=== PATIENT | male | born 1935 | race Asian ===

== ENCOUNTER 2024-02-19 14:23 | Inpatient (IN) | payer MEDICARE, MEDICAID ==
[~2024-02-19] VITALS: Ht 170.2 cm; Wt 66.4 kg
--- NOTE | 2024-02-19 15:18 | DVH ---
EXAM: XY CHEST PORTABLE TECHNIQUE: Single frontal chest radiograph CLINICAL HISTORY: sob COMPARISON: None Findings/Impression: Frontal chest radiograph demonstrates no acute osseous or superficial soft tissue abnormalities. The trachea is midline. Cardiomegaly with pulmonary vascular congestion. Small bilateral pleural effusions with compressive atelectasis. A superimposed infectious process is not excluded. No pneumothorax.
[2024-02-19 15:20] LABS: Basophils # (auto) 0 10 ^3/uL (0-0.2); Basophils % (auto) 0.7 % (0.0-2.0); Eosinophils # (auto) 0.1 10 ^3/uL (0-0.8); Eosinophils % (auto) 3.1 % (0.0-7.0); Hematocrit 32.3 % (41.0-53.0); Hemoglobin 10.2 g/dL (13.5-17.5); Lymphocytes # (auto) 0.8 10 ^3/uL (0.4-5.4); Lymphocytes % (auto) 21.5 % (10.0-50.0); Mean Corpuscular Hemoglobin 27.5 pg (28.0-32.0); Mean Corpuscular Hgb Conc. 31.5 g/dL (32.0-36.0); Mean Corpuscular Volume 87.5 fL (80.0-100.0); Monocytes # (auto) 0.3 10 ^3/uL (0-1.3); Monocytes % (auto) 6.6 % (0.0-12.0); Neutrophils # (auto) 2.7 10 ^3/uL (1.6-8.6); Neutrophils % (auto) 68.1 % (37.0-80.0); Nucleated Red Blood Cells % 0.1 %; Platelet Count (auto) 156 10^3/uL (140-450); Red Cell Distribution Width 18.5 % (11.8-14.3)
[2024-02-19 15:23] LABS: Anion Gap 6 (5-15); Carbon Dioxide 25 mmol/L (20-31)
[2024-02-19 15:24] LABS: Calcium 8.9 mg/dL (8.7-10.4); Chloride 112 mmol/L (98-107); Sodium 143 mmol/L (136-145)
[2024-02-19 15:28] LABS: BUN/Creatinine Ratio 11.8 (10.0-20.0); Blood Urea Nitrogen 23 mg/dL (9-23)
[2024-02-19 15:29] LABS: Glucose 144 mg/dL (74-106)
[2024-02-19] MEDS: NTG 0.1MG/HR TOPICAL PATCH TD ONE (15:30)
--- NOTE | 2024-02-19 15:44 | ED.PDOC ---
History of Present Illness HPI Comments 88 y/o M presents with son for c/o shortness of breath, chest pain, bilateral leg swelling, poor appetite, and unintentional weight-loss for the past 2x weeks, today. Per son, who, in addition to the patient, is a poor historian, patient has been getting progressively worse within the past couple weeks follo wing unprovoked onset. Patient is stated to have had similar symptoms 3x months ago but son is unable to elaborate further on series of events or outcomes that came about then. Patient is further reported to have an extensive cardiac Hx without specifications provided by either patient or son. Patient has no other palpitations, dizziness, lightheadedness, nausea, vomiting, fever, chills, or other associated symptoms or modifiers at this time. Chief Complaint: Shortness of Breath Time Seen by MD: 14:50 Reviewed Notes: Nurses Notes, Medications, Allergies Allergies: Coded Allergies: NO KNOWN ALLERGIES (Unverified , 02/19/24) Information Source: Patient, Relative (Child) Mode of Arrival: EMS Severity: Moderate Timing: Weeks Duration: Since onset Prehospital treatment: None Past Medical History Past Medical History (Other): cardiac conditions, unspecified Social History Smoker: Non-Smoker Alcohol: Denies ETOH Use Drugs: Denies Drug Use Respiratory: reports: shortness of breath Cardiovascular: reports: chest pain Musculoskeletal: reports: others (leg swelling bilaterally ) All Other Systems: Reviewed and Negative (negative unless otherwise stated in HPI) Physical Exam General Appearance: No Apparent Distress, Normal HEENT: Normal ENT Inspection, Pharynx Normal, TMs Normal Neck: Full Range of Motion, Non-Tender, Normal, Normal Inspection Respiratory: Chest Non-Tender, Lungs Clear, No Accessory Muscle Use, No Respiratory Distress, Normal Breath Sounds Cardiovascular: No Edema, No JVD, No Murmur, No Gallop, Normal Peripheral Pulses, Other (systolic clip) Breast Exam: Deferred Gastrointestinal: No Organomegaly, Non Tender, No Pulsatile Mass, Normal Bowel Sounds, Soft Genitalia: Deferred Pelvic: Deferred Rectal: Deferred Extremities: Leg edema (3+ pedal edema ), No calf tenderness, Normal capillary refill, Normal range of motion, No pedal edema Musculoskeletal : Apperance: Normal 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 Was a procedure done?: No EKG EKG : Pulse Rate (adult): 74 [place]: Normal Cardiac Rhythm: Afib Hypertrophy: None ST: Old, Ant, Infarct Comments left posterior fascicular block Differential Dx Considerations may include: MT, ACS, PE, PNA, pleural effusions, angina, costochondritis, pericarditis, viral syndrome, URI, chf, renal failure, liver failure X-Ray, Labs, Meds, VS Vital Signs Date Time Temp Pulse Resp B/P (MAP) Pulse Ox O2 Delivery O2 Flow Rate FiO2 02/19/24 15:44 74 02/19/24 14:41 74 02/19/24 14:35 98.9 74 19 133/73 (93) 97 02/19/24 14:30 74 Lab Test 02/19/24 15:00 Range/Units White Blood Count 4.0 L 4.4-10.8 10^3/uL Red Blood Count 3.70 L 4.5-5.90 10^6/uL Hemoglobin 10.2 L 13.5-17.5 g/dL Hematocrit 32.3 L 41.0-53.0 % Mean Corpuscular Volume 87.5 80.0-100.0 fL Mean Corpuscular Hemoglobin 27.5 L 28.0-32.0 pg Mean Corpuscular Hemoglobin Concent 31.5 L 32.0-36.0 g/dL Red Cell Distribution Width 18.5 H 11.8-14.3 % Platelet Count 156 140-450 10^3/uL Mean Platelet Volume 8.0 6.9-10.8 fL Neutrophils (%) (Auto) 68.1 37.0-80.0 % Lymphocytes (%) (Auto) 21.5 10.0-50.0 % Monocytes (%) (Auto) 6.6 0.0-12.0 % Eosinophils (%) (Auto) 3.1 0.0-7.0 % Basophils (%) (Auto) 0.7 0.0-2.0 % Neutrophils # (Auto) 2.7 1.6-8.6 10 ^3/uL Lymphocytes # (Auto) 0.8 0.4-5.4 10 ^3/uL Monocytes # (Auto) 0.3 0-1.3 10 ^3/uL Eosinophils # (Auto) 0.1 0-0.8 10 ^3/uL Basophils # (Auto) 0 0-0.2 10 ^3/uL Nucleated Red Blood Cells 0.1 % Sodium Level 143 136-145 mmol/L Potassium Level 5.0 3.5-5.1 mmol/L Chloride Level 112 H 98-107 mmol/L Carbon Dioxide Level 25 20-31 mmol/L Anion Gap 6 5-15 Blood Urea Nitrogen 23 9-23 mg/dL Creatinine 1.95 H 0.700-1.30 mg/dL Glomerular Filtration Rate Calc 33 >90 mL/min BUN/Creatinine Ratio 11.8 10.0-20.0 Serum Glucose 144 H 74-106 mg/dL Calcium Level 8.9 8.7-10.4 mg/dL Troponin I High Sensitivity 54 </=54 ng/L B-Type Natriuretic Peptide 484.46 0-100 pg/mL [place] [id number] Ph: [phone] DIAGNOSTIC IMAGING Diagnostic Imaging Report : [id number] Signed PATIENT: Piero Cruz ACCT: [id number] UNIT: [id number] : 1935 LOC: ER ROOM / BED: / AGE / SEX: 88 / M ADM STATUS: REG ER SERVICE 49 ORDERING PHYSICIAN: KAYLYNN SHER MD PROCEDURE(s): CXRP - CHEST PORTABLE REASON: sob ORDER NUMBER(s): [id number], ACCESSION NUMBER(s): [id number] EXAM: XY CHEST PORTABLE TECHNIQUE: Single frontal chest radiograph CLINICAL HISTORY: sob COMPARISON: None Findings/Impression: Frontal chest radiograph demonstrates no acute osseous or superficial soft tissue abnormalities. The trachea is midline. Cardiomegaly with pulmonary vascular congestion. Small bilateral pleural effusions with compressive atelectasis. A superimposed infectious process is not excluded. No pneumothorax. ATED BY: ZABRINA RAMIREZ DO DICTATED DATE/TIME: 02/19/241514 SIGNED BY: ZABRINA RAMIREZ DO SIGNED DATE/TIME: 02/19/241514 CC: Time of 1ST Reevaluation: 15:20 Reevaluation 1ST: Unchanged Time of 2ND Reevaluation: 15:49 Reevaluation 2ND: Unchanged (shelter monitor-nsr) Patient Education/Counseling: Diagnosis, Treatment, Prognosis, Need For Follow Up Family Education/Counseling: Diagnosis, Treatment, Prognosis, Need For Follow Up Additional Information The following tests were ordered, and results were reviewed by me: EKG, troponin, BNP, BMP, CBC, CXR Additional Information was gathered from interviewing the following independent historians: son I reviewed and agreed with the following test results read by other providers: CXR I discussed treatment and results with medical personnel and:son pt has chf, with cxr and physical findings which are consistent. he also has renal insufficiency. it is unknown how acute the renal failure is. i will diurese him, but since he is not in distress. i will give judicious doses as he will need close renal monitoring with diuresis Departure 1 Departure Time of Disposition: 15:51 Impression: Primary Impression: CHF (congestive heart failure) Qualified Codes: I50.21 - Acute systolic (congestive) heart failure Additional Impression: Renal failure Qualified Codes: N19 - Unspecified kidney failure Disposition: ADMITTED INPATIENT Admit to: Tele Condition: Serious Discharged With: Self, Relative Critical Care Note Critical Care Time?: Yes (55 min-critical care time only) Critical care comment: due to concerns for patient's condition worsening, the care required my highest attention and readiness to intervene. i reviewed the medical records, communicated with medical personnel, consultants, ordered the proper tests, treatments, reassessed the response and results. formulated a plan of care . total time does not include any procedures Stability Stability form required: No Heart Score Heart Score: Heart Score Response (Comments) Value History Moderate Suspicious 1 EKG Repolarization Disturb 1 Age >65 2 Risk Factors 1 or 2 risk factors 1 Troponin Normal limit 0 Total 5 I personally scribed for KAYLYNN SHER MD ([email or web address]) on 02/19/24 at 15:44. Electronically submitted by Babak Oneill ([email or web address]). KAYLYNN SHER MD Feb 19, 2024 15:44
[2024-02-19] MEDS: ASPirin 325 MG TAB PO ONE (18:08)
[2024-02-19] MEDS: FUROSEMIDE 20 MG/2 ML VIAL IV ONE (18:12)
[2024-02-19] MEDS ORDERED: TEMAZEPAM 15 MG CAP PO PRN (20:15)
[2024-02-19] MEDS ORDERED: NITROGLYCERIN 0.4 MG SL TAB SL PRN (20:15)
[2024-02-19] MEDS ORDERED: MORPHINE SULFATE INJ 2 MG/ml SYRG IV PRN (20:15)
[2024-02-19] MEDS ORDERED: ONDANSETRON HCL 4 MG/2 ML VIAL IV PRN (20:15)
[2024-02-19 20:59] LABS: INR 1.99 (0.9-1.15); Partial Thromboplastin Time 31.9 SEC (24.5-34.5)
[2024-02-19] MEDS: GABAPENTIN 100 MG CAP PO SCH (23:41)
[2024-02-19] MEDS: ATORVASTATIN 20 MG TAB PO SCH (23:41)
[2024-02-20] VITALS (10 sets, daily range): BP systolic 113–151; BP diastolic 54–78; PULSE 67–85; RESP 16–20; TEMP 97.4–98.1; O2SAT 93–96
--- NOTE | 2024-02-20 04:39 | DVHHP2 ---
History of Present Illness Reason for Visit: Leg swelling History of Present Illness 88-year-old male presents for evaluation of shortness for breath. Patient presents with a one-week history of worsening shortness for breath with associated bilateral lower extremity swelling and chest pressure. No cough or fever were reported. Denies palpitations. No other acute complaints. Past Medical History Diabetes mellitus, Hypertension, dyslipidemia, congestive heart failure, CAD Past Surgical History Open heart surgery Family History Noncontributory Smoke: No ALCOHOL: none Drugs: None Lives: with Family Review of Systems Review of Systems Review of systems are currently negative otherwise addressed in HPI. Allergies: Coded Allergies: NO KNOWN ALLERGIES (Unverified , 02/19/24) Medications Current Medications Medications Dose Ordered Sig/Robbie Route Start Time Stop Time Status Last Admin Dose Admin Furosemide 20 mg BIDD IV 02/20/24 06:00 Losartan Potassium 100 mg DAILY PO 02/20/24 10:00 Atorvastatin Calcium 40 mg HS PO 02/19/24 22:00 02/19/24 23:41 40 MG Gabapentin 100 mg BID PO 02/19/24 22:00 02/19/24 23:41 100 MG Warfarin Sodium RX PROTOCOL PER PHARMACY PO 02/19/24 20:15 UNV Aspirin 81 mg DAILY PO 02/20/24 10:00 Temazepam 15 mg QHSP PRN PO 02/19/24 20:15 Ondansetron HCl 4 mg Q4HP PRN IV 02/19/24 20:15 Acetaminophen 650 mg Q6HP PRN PO 02/19/24 20:15 Nitroglycerin 0.4 mg Q5MINP PRN SL 02/19/24 20:15 Morphine Sulfate 2 mg Q30M PRN IV 02/19/24 20:15 Exam Vital Signs Vital Signs Date Time Temp Pulse Resp B/P (MAP) Pulse Ox O2 Delivery O2 Flow Rate FiO2 02/20/24 00:15 85 18 96 Room Air* 0 21 02/20/24 00:15 97.6 142/71 (94) 97.6 Exam Gen: 88-year-old male in mild distress. Skin: Warm, dry, normal color and texture, no rash. HEENT: Normocephalic atraumatic, mucous membranes moist and pink. Neck: Cervical and supraclavicular nodes normal without enlargement, trachea is midline, thyroid gland is normal without masses. Pulmonary: Clear to auscultation and percussion bilaterally. Cardiac: Regular rate and rhythm. No murmur Abdomen: Soft, nontender, nondistended, bowel sounds present all 4 quadrants, no guarding, no rigidity, no organomegaly. Extremities: No cyanosis, clubbing, no edema Neuro: Cranial nerves II through XII grossly intact, normal affect and speech, no focal motor deficits. Labs/Xrays ORDERING PHYSICIAN: KAYLYNN SHER MD PROCEDURE(s): CXRP - CHEST PORTABLE REASON: sob ORDER NUMBER(s): [id number], ACCESSION NUMBER(s): [id number] EXAM: XY CHEST PORTABLE TECHNIQUE: Single frontal chest radiograph CLINICAL HISTORY: sob COMPARISON: None Findings/Impression: Frontal chest radiograph demonstrates no acute osseous or superficial soft tissue abnormalities. The trachea is midline. Cardiomegaly with pulmonary vascular congestion. Small bilateral pleural effusions with compressive atelectasis. A superimposed infectious process is not excluded. No pneumothorax. Labs Test 02/19/24 20:35 02/19/24 18:05 02/19/24 15:00 Range/Units Prothrombin Time 20.0 H 9.3-11.8 sec Prothrombin Time INR 1.99 H 0.9-1.15 Activated Partial Thromboplast Time 31.9 24.5-34.5 SEC Troponin I High Sensitivity 53 </=54 ng/L White Blood Count 4.0 L 4.4-10.8 10^3/uL Red Blood Count 3.70 L 4.5-5.90 10^6/uL Hemoglobin 10.2 L 13.5-17.5 g/dL Hematocrit 32.3 L 41.0-53.0 % Mean Corpuscular Volume 87.5 80.0-100.0 fL Mean Corpuscular Hemoglobin 27.5 L 28.0-32.0 pg Mean Corpuscular Hemoglobin Concent 31.5 L 32.0-36.0 g/dL Red Cell Distribution Width 18.5 H 11.8-14.3 % Platelet Count 156 140-450 10^3/uL Mean Platelet Volume 8.0 6.9-10.8 fL Neutrophils (%) (Auto) 68.1 37.0-80.0 % Lymphocytes (%) (Auto) 21.5 10.0-50.0 % Monocytes (%) (Auto) 6.6 0.0-12.0 % Eosinophils (%) (Auto) 3.1 0.0-7.0 % Basophils (%) (Auto) 0.7 0.0-2.0 % Neutrophils # (Auto) 2.7 1.6-8.6 10 ^3/uL Lymphocytes # (Auto) 0.8 0.4-5.4 10 ^3/uL Monocytes # (Auto) 0.3 0-1.3 10 ^3/uL Eosinophils # (Auto) 0.1 0-0.8 10 ^3/uL Basophils # (Auto) 0 0-0.2 10 ^3/uL Nucleated Red Blood Cells 0.1 % Sodium Level 143 136-145 mmol/L Potassium Level 5.0 3.5-5.1 mmol/L Chloride Level 112 H 98-107 mmol/L Carbon Dioxide Level 25 20-31 mmol/L Anion Gap 6 5-15 Blood Urea Nitrogen 23 9-23 mg/dL Creatinine 1.95 H 0.700-1.30 mg/dL Glomerular Filtration Rate Calc 33 >90 mL/min BUN/Creatinine Ratio 11.8 10.0-20.0 Serum Glucose 144 H 74-106 mg/dL Calcium Level 8.9 8.7-10.4 mg/dL B-Type Natriuretic Peptide 484.46 0-100 pg/mL Assessment/Plan Assessment/Plan Assessment Acute on chronic congestive heart failure Chronic kidney disease Diabetes mellitus Plan Admit the patient to telemetry to the hospitalist Cardiology consultation Resume home medications IV Lasix Continue treatment per orders. Plan discussed with: Patient My Orders Orders - NASIR SUNG AGACN Procedure Category Date Status Time Furosemide Injection PHA 02/20/24 In Process (Lasix Injection) 06:00 Losartan Tablet PHA 02/20/24 In Process (Cozaar Tablet) 10:00 Atorvastatin (Lipitor) PHA 02/19/24 In Process 22:00 Gabapentin Capsule PHA 02/19/24 In Process (Neurontin Capsule) 22:00 Warfarin Per Rx PHA 02/19/24 Pending Protocol (Coumadin 20:15 Aspirin Tablet PHA 02/20/24 In Process 10:00 * Cardiology Consult CONS 02/19/24 Transmitted 20:02 Admit ADMIT 02/19/24 Transmitted 20:02 Temazepam (Restoril) PHA 02/19/24 In Process 20:15 Ondansetron Hcl PHA 02/19/24 In Process (Zofran) 20:15 Cardiac DIET 02/20/24 Transmitted Diet-2gna,Lofat,Lochol Breakfast Echo 2d Mode Cardiac US 02/19/24 Logged DOP 20:02 Condition: Fair CARTER 02/19/24 In Process 20:02 Acetaminophen Tablet PHA 02/19/24 In Process (Tylenol Tablet) 20:15 Bedrest With Bathroom [facility]TER 02/19/24 In Process Privileg 20:02 Nitroglycerin [facility] 02/19/24 In Process Sublingual (Ntrostat 20:15 Morphine Sulfate PHA 02/19/24 In Process Injection 20:15 Stat Ekg For Chest [facility] 02/19/24 In Process Pain 20:02 Notify Of Changes [facility] 02/19/24 In Process From Base 20:02 Bobbin Cleaner For [facility] 02/19/24 In Process 24 Hours 20:02 Emergency Dysrhythmia [facility] 02/19/24 In Process Protocol 20:02 Rhythm Strips Once [facility] 02/19/24 In Process Every Shift 20:02 Oxygen By Nasal RT 02/19/24 Transmitted Cannula 20:02 Basic Metabolic Panel LAB 02/20/24 Logged 04:00 Date of Service: Feb 19, 2024 Billing Provider: NASIR SUNG Common Visit Codes: 59572-BYAJRIH INP/OBS CARE (HIGH) NASIR SUNG Feb 20, 2024 04:38
[2024-02-20] MEDS: FUROSEMIDE 20 MG/2 ML VIAL IV SCH (06:49)
[2024-02-20 07:26] LABS: Potassium 4.6 mmol/L (3.5-5.1); Sodium 143 mmol/L (136-145)
[2024-02-20 07:27] LABS: Anion Gap 6 (5-15); Calcium 9.2 mg/dL (8.7-10.4); Carbon Dioxide 26 mmol/L (20-31)
[2024-02-20 07:32] LABS: BUN/Creatinine Ratio 10.1 (10.0-20.0); Blood Urea Nitrogen 20 mg/dL (9-23)
[2024-02-20 07:34] LABS: Chloride 111 mmol/L (98-107); Glucose 122 mg/dL (74-106)
[2024-02-20 09:09] LABS: Basophils # (auto) 0 10 ^3/uL (0-0.2); Basophils % (auto) 0.7 % (0.0-2.0); Eosinophils # (auto) 0.2 10 ^3/uL (0-0.8); Eosinophils % (auto) 4.9 % (0.0-7.0); Hematocrit 31.1 % (41.0-53.0); Hemoglobin 10.1 g/dL (13.5-17.5); Mean Corpuscular Hemoglobin 27.5 pg (28.0-32.0); Mean Corpuscular Hgb Conc. 32.4 g/dL (32.0-36.0); Mean Corpuscular Volume 84.9 fL (80.0-100.0); Monocytes # (auto) 0.3 10 ^3/uL (0-1.3); Monocytes % (auto) 6.5 % (0.0-12.0); Neutrophils # (auto) 2.7 10 ^3/uL (1.6-8.6); Neutrophils % (auto) 63.9 % (37.0-80.0); Platelet Count (auto) 165 10^3/uL (140-450); Red Blood Cells 3.66 10^6/uL (4.5-5.90); Red Cell Distribution Width 18.4 % (11.8-14.3); White Blood Cell 4.2 10^3/uL (4.4-10.8)
[2024-02-20 09:13] LABS: Albumin 3.5 g/dL (3.2-4.8); Alkaline Phosphatase 82 U/L (46-116); Aspartate Aminotransferase 18 U/L (13-40); Bilirubin, Total 1.2 mg/dL (0.2-1.0); Cholesterol 109 mg/dL (< 200); HDL Cholesterol 45 mg/dL (40-59); LDL Cholesterol 46 mg/dL (< 100); Magnesium 2.1 mg/dL (1.6-2.6); Triglycerides 83 mg/dL (< 150)
[2024-02-20 09:22] LABS: Alanine Aminotransferase < 9 U/L (7-40); Bilirubin, Direct 0.5 mg/dL (<0.3); Blood Alcohol < 3.0 mg/dL (<10); Total Protein 5.7 g/dL (5.7-8.2)
[2024-02-20] MEDS: LOSARTAN POTASSIUM 50 MG TAB PO SCH (10:28)
[2024-02-20] MEDS: ASPirin 81 mg TAB PO SCH (10:29)
--- NOTE | 2024-02-20 11:31 | DVH ---
Bilateral lower extremity venous duplex Clinical History: swelling and pain both legs Comparison: None Technique: Duplex Doppler evaluation of the deep venous systems of both lower extremities from the common femora l veins to the popliteal veins including color Doppler and spectral/pulsed waveform analysis was perf ormed. Findings: RIGHT SIDE: The common femoral vein demonstrates appropriate compressibility and waveform variability. There is compressibility/patency of the great saphenous vein at the proximal thigh. The femoral vein demonstrates appropriate compressibility and waveform variability. The deep femoral vein demonstrates appropriate compressibility and waveform variability. The popliteal vein demonstrates appropriate compressibility and waveform variability. There is normal compressibility at the tibioperoneal trunk. LEFT SIDE: The common femoral vein demonstrates appropriate compressibility and waveform variability. There is compressibility/patency of the great saphenous vein at the proximal thigh. The femoral vein demonstrates appropriate compressibility and waveform variability. The deep femoral vein demonstrates appropriate compressibility and waveform variability. The popliteal vein demonstrates appropriate compressibility and waveform variability. There is normal compressibility at the tibioperoneal trunk. Impression: No right or left femoropopliteal venous thrombosis.
--- NOTE | 2024-02-20 12:44 | DVHSR ---
APPROVED REPORT EXAM: Two-dimensional and M-mode echocardiogram with Doppler and color Doppler. Blood Pressure: 122/59 mmHg INDICATION EF Surgery/Intervention Valve Replacement: Type: AV RISK FACTORS Height: 5'7", Weight: 185 DIMENSIONS LVDd4.9 (3.8-5.7cm)LA (2D)4.8 (1.9-4.0cm)Aortic Root3.8 (2.0-3.7cm) LVDs2.7 (2.5-4.0cm)LA (MM) (1.9-4.0cm)Aortic Cusp Exc (1.5-2.0cm) EF (%) 77.0 (55-70%)Rt. Atrium4.6 (1.9-4.0cm)Asc. Aorta3.4 cm IVSd1.5 (0.7-1.1cm)RV (D)4.2 (1.8-2.4cm) PWd1.3 (0.7-1.1cm) Mitral Valve MitralMitral Stenosis E wave1.47m/sMV Mean GR.mmHg A wave0.55m/sMV Peak GR.mmHg E/A ratio2.72D MVAcm2 DECEL [id number] 1/2 Timems Aortic Valve Aortic ValveAortic Stenosis V10.87m/Bertin Mean GR.12mmHg V22.39m/Bertin Peak GR.23mmHg LVOT Diameter2.1 (1.8-2.4cm)Doppler AVA1.26cm2 Pulmonic Valve V21.38m/s Tricuspid Valve TR Velocity2.96m/s [id number] Conclusion Normal left ventricular size and dimension. Normal left ventricular systolic function estimated ejec tion fraction 55%. There is a grade 1 diastolic dysfunction. Normal right ventricular size and dimension. Normal right ventricular systolic function. 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 Moderately dilated left atrium. The mitral valve appears mildly thickened with mild mitral regurgitation. There is moderate tricuspid regurgitation. There is moderate pulmonary valve regurgitation.
[2024-02-20] MEDS: REGADENOSON 0.4 MG/5 ML SYRG IV ONE ×2 (13:25→13:49)
--- NOTE | 2024-02-20 13:49 | DVHCONRES ---
Date Seen: Feb 20, 2024 Resident Creating Document: DENTON ARANDA RESIDENT Reason for Consultation CHF History of Present Illness Piero Cruz is a 88-year-old German speaking male with a PMH of HTN, type 2 DM, dyslipidemia presented to the ED with the chief complaints of shortness of Breath for 2-3 weeks prior to admission. Patient reported he has been having difficulty breathing for 2-3 weeks which is worsening with a mild exertion and unable to lay down. Patient reports orthopnea and PND along with bilateral lower extremity swelling and occasional substernal chest discomfort. On my assessment patient denies fever, nausea, vomiting, diaphoresis, dizziness, palpitations and other acute associated symptoms. Patient does report around 45 years ago he had valve replacement surgery. 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 Family History Reviewed, noncontributory Social History Lives with the . Denies smoking, alcohol and other drug abuse Allergies: Coded Allergies: NO KNOWN ALLERGIES (Unverified , 02/19/24) Home Meds Unable to Obtain Active Prescriptions or Reported Meds Current Medications Current Medications Medications (Trade) Dose Ordered Sig/Robbie Route PRN Reason Start Time Stop Time Status Last Admin Furosemide (Lasix Injection) 20 mg BIDD IV 02/20/24 06:00 02/20/24 10:43 DC 02/20/24 06:49 Losartan Potassium (Cozaar Tablet) 100 mg DAILY PO 02/20/24 10:00 02/20/24 10:28 Atorvastatin Calcium (Lipitor) 40 mg HS PO 02/19/24 22:00 02/19/24 23:41 Gabapentin (Neurontin Capsule) 100 mg BID PO 02/19/24 22:00 02/20/24 10:28 Warfarin Sodium (Coumadin Per Rx Protocol) RX PROTOCOL PER PHARMACY PO 02/19/24 20:15 Aspirin 81 mg DAILY PO 02/20/24 10:00 02/20/24 10:29 Temazepam (Restoril) 15 mg QHSP PRN PO FOR INSOMNIA 02/19/24 20:15 Ondansetron HCl (Zofran) 4 mg Q4HP PRN IV NAUSEA / VOMITING 02/19/24 20:15 Acetaminophen (Tylenol Tablet) 650 mg Q6HP PRN PO PAIN SCALE 1-3 OR TEMP>100.4 02/19/24 20:15 Nitroglycerin (Ntrostat Sublingual) 0.4 mg Q5MINP PRN SL FOR CHEST PAIN 02/19/24 20:15 Morphine Sulfate 2 mg Q30M PRN IV FOR CHEST PAIN 02/19/24 20:15 Furosemide (Lasix Injection) 40 mg BIDD IV 02/20/24 10:45 Review of Systems Seen and examined at the bedside. Patient reported improvement in his symptoms since admission. No new complaints reported at this time. Vital Signs Vital Signs Date Time Temp Pulse Resp B/P (MAP) Pulse Ox O2 Delivery O2 Flow Rate FiO2 02/20/24 13:00 97.7 69 16 135/78 (97) 96 97.7 02/20/24 00:15 Room Air* 0 21 Physical Exam General Appearance: Alert, Oriented X3, Cooperative, Not in acute distress HEENT: Atraumatic, Mucous membranes moist/pink Respiratory: Clear to auscultation, Normal air movement, mild crackles Cardiovascular: Regular rate, Normal S1, Normal S2, No murmurs Abdominal: Active bowel sounds, Soft, no distention, no tenderness Extremities: 2-3+ BLE, Normal pulses, mild tenderness Skin: No Significant rash, except past surgical scars Neuro: Normal speech, sensorimotor deficits none Psych/Mental Status: Mental status NL, Mood NL Nurse was there as sharperone during examination Labs/Diagnostic Data Labs Test 02/20/24 07:04 02/19/24 20:35 02/19/24 18:05 02/19/24 15:00 Range/Units White Blood Count 4.2 L 4.4-10.8 10^3/uL Red Blood Count 3.66 L 4.5-5.90 10^6/uL Hemoglobin 10.1 L 13.5-17.5 g/dL Hematocrit 31.1 L 41.0-53.0 % Mean Corpuscular Volume 84.9 80.0-100.0 fL Mean Corpuscular Hemoglobin 27.5 L 28.0-32.0 pg Mean Corpuscular Hemoglobin Concent 32.4 32.0-36.0 g/dL Red Cell Distribution Width 18.4 H 11.8-14.3 % Platelet Count 165 140-450 10^3/uL Mean Platelet Volume 8.0 6.9-10.8 fL Neutrophils (%) (Auto) 63.9 37.0-80.0 % Lymphocytes (%) (Auto) 24.0 10.0-50.0 % Monocytes (%) (Auto) 6.5 0.0-12.0 % Eosinophils (%) (Auto) 4.9 0.0-7.0 % Basophils (%) (Auto) 0.7 0.0-2.0 % Neutrophils # (Auto) 2.7 1.6-8.6 10 ^3/uL Lymphocytes # (Auto) 1.0 0.4-5.4 10 ^3/uL Monocytes # (Auto) 0.3 0-1.3 10 ^3/uL Eosinophils # (Auto) 0.2 0-0.8 10 ^3/uL Basophils # (Auto) 0 0-0.2 10 ^3/uL Nucleated Red Blood Cells 0.0 % Sodium Level 143 136-145 mmol/L Potassium Level 4.6 3.5-5.1 mmol/L Chloride Level 111 H 98-107 mmol/L Carbon Dioxide Level 26 20-31 mmol/L Anion Gap 6 5-15 Blood Urea Nitrogen 20 9-23 mg/dL Creatinine 1.99 H 0.700-1.30 mg/dL Glomerular Filtration Rate Calc 32 >90 mL/min BUN/Creatinine Ratio 10.1 10.0-20.0 Serum Glucose 122 H 74-106 mg/dL Hemoglobin A1c 6.8 H <5.7 % A1C Calcium Level 9.2 8.7-10.4 mg/dL Magnesium Level 2.1 1.6-2.6 mg/dL Total Bilirubin 1.2 H 0.2-1.0 mg/dL Direct Bilirubin 0.5 H <0.3 mg/dL Aspartate Amino Transferase (AST) 18 13-40 U/L Alanine Aminotransferase (ALT) < 9 7-40 U/L Alkaline Phosphatase 82 46-116 U/L Total Protein 5.7 5.7-8.2 g/dL Albumin 3.5 3.2-4.8 g/dL Triglycerides Level 83 < 150 mg/dL Cholesterol Level 109 < 200 mg/dL LDL Cholesterol 46 < 100 mg/dL HDL Cholesterol 45 40-59 mg/dL Thyroid Stimulating Hormone (TSH) 4.17 0.55-4.78 uIU/mL Plasma/Serum Blood Alcohol < 3.0 <10 mg/dL Prothrombin Time 20.0 H 9.3-11.8 sec Prothrombin Time INR 1.99 H 0.9-1.15 Activated Partial Thromboplast Time 31.9 24.5-34.5 SEC Troponin I High Sensitivity 53 </=54 ng/L B-Type Natriuretic Peptide 484.46 0-100 pg/mL Assessment Acute on chronic HFpEf with EF 55% 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 DOLORES on CKD Plan/Recommendation We will continue with the following plan/recommendations (Dr. Alvarez): Echocardiogram showed EF 55% with a grade 1 diastolic dysfunction Guideline directed medical therapy for CHF as renal function and BP permits Scheduled stress test Lasix 40 mg IV b.i.d., metolazone 2.5 mg once every tuesday BP control Lipid-lowering agent DVT/VTE prophylaxis Risk factor modification, counseled Dietary changes Limiting sodium intake Strict INOs Maintaining fluid restriction, daily weight Consider Nephrology evaluation Case discussed with Dr. Sood, optimal medical treatment, as renal function and BP permits. Scheduled stress test Plan discussed with: Patient, Son Visit Coding Cardiology RES Date of Service: Feb 20, 2024 Billing Provider: SURENDRA SOOD MD Cardiology Common Codes: 46799-OHQXNBY INP/OBS CARE (Mod) DENTON ARANDA RESIDENT Feb 20, 2024 13:49
--- NOTE | 2024-02-20 14:07 | DVHPN2 ---
Progress Note Date Seen: Feb 20, 2024 Medical Necessity Reason Pt with a Central, PICC or Fol: No Subjective Patient reports: No new complaints Review of Systems: HEENT:Normal, CVS:Normal, RESPIRATORY:Normal, GI:Normal, :Normal, MSK:Normal, NEURO:Normal Objective vital signs Vital Sign Date Time Temp Pulse Resp B/P (MAP) Pulse Ox O2 Delivery O2 Flow Rate FiO2 02/20/24 13:00 97.7 69 16 135/78 (97) 96 97.7 02/20/24 00:15 Room Air* 0 21 medications Current Medications Medications Dose Ordered Sig/Robbie Route Start Time Stop Time Status Last Admin Dose Admin Losartan Potassium 100 mg DAILY PO 02/20/24 10:00 02/20/24 10:28 100 MG Atorvastatin Calcium 40 mg HS PO 02/19/24 22:00 02/19/24 23:41 40 MG Gabapentin 100 mg BID PO 02/19/24 22:00 02/20/24 10:28 100 MG Warfarin Sodium RX PROTOCOL PER PHARMACY PO 02/19/24 20:15 Aspirin 81 mg DAILY PO 02/20/24 10:00 02/20/24 10:29 81 MG Temazepam 15 mg QHSP PRN PO 02/19/24 20:15 Ondansetron HCl 4 mg Q4HP PRN IV 02/19/24 20:15 Acetaminophen 650 mg Q6HP PRN PO 02/19/24 20:15 Nitroglycerin 0.4 mg Q5MINP PRN SL 02/19/24 20:15 Morphine Sulfate 2 mg Q30M PRN IV 02/19/24 20:15 Furosemide 40 mg BIDD IV 02/20/24 10:45 Metoprolol Succinate 25 mg DAILY PO 02/21/24 10:00 Examination: GENERAL:Normal, HEENT:Normal, NECK:Normal, LUNGS:Normal, CVS:Normal, ABDOMEN:Normal, MSK:Normal, SKIN:Normal, NEURO:Normal, :Normal laboratory and microbiology Laboratory Tests 02/20/24 07:04 Test 02/20/24 07:04 Range/Units Serum Glucose 122 H 74-106 mg/dL Problem List/Assessment/Plan Problem List/Assessment/Plan #1 acute on chronic diastolic heart failure: lasix iv #2 htn #3 ckd stage 3b: usg #4 h/o avr: on coumadin #5 anemia #6 cad: stress test advance care planning- full code- time spent 19 mins Plan discussed with: Other (rn) My Orders My Orders Orders - NASIR JAMA MD Procedure Category Date Status Time Losartan Tablet PHA 02/21/24 Verified (Cozaar Tablet) 10:00 Urinalysis LAB 02/20/24 Uncollected 13:55 Hydralazine Hcl PHA 02/20/24 Verified Tablet (Apresoline 22:00 Kidney US 02/20/24 Verified 13:55 Basic Metabolic Panel LAB 02/21/24 Verified 06:00 Chest Portable XY 02/21/24 Verified 06:00 Dietary Evaluation Review Comments: 1. Consider CCHO-60g, Renal Specifi-60g, 2GNA 3K, low phos diet 2. Consider not be on low fat low cholesterol diet because his lipid pannel appears to be WNL, 3. Counseld family/son regarding to a low salt Danish style meals and adjusting his food choice to have a low sugar diet. Expected Outcomes/Goals: Controlled DM and avoid toxic uremic symdromes. gradual weight gain Date of Service: Feb 20, 2024 Billing Provider: NASIR JAMA MD Common Visit Codes: [id number] INP/OBS CARE(HIGH) Secondary Visit Codes: [id number] CARE PLAN 30 MINUTES Date of Service: Feb 20, 2024 Billing Provider: NASIR JAMA MD Common Visit Codes: [id number] INP/OBS CARE(HIGH) Secondary Visit Codes: [id number] CARE PLAN 30 MINUTES NASIR JAMA MD Feb 20, 2024 14:07
--- NOTE | 2024-02-20 15:30 | DVHSR ---
APPROVED REPORT Exam: Nuclear Stress Test BMI: 0 Stress Test Details HR Max Heart Rate (APMHR): 134.727176 bpm Target HR (85% APMHR): 113.652133 bpm BP ECG Stress ECG Conclusion Resting ECG shows normal sinus rhythm. At peak stress level no dynamic EKG changes was noted. Resting images shows near homogeneous uptake of radioactive tracer throughout the myocardium without evidence of myocardial infarction. Stress images shows near homogeneous uptake of radioactive tracer throughout the myocardium without e vidence of myocardial ischemia. Well-preserved left ventricular systolic function at 57%. Impression: Negative stress test for ischemia, low risk study NM EXAM: Myocardial Perfusion REST/STRESS Imaging Protocol: Rest Tc-99m/Stress Tc-99m 1 day Resting Data Rest SPECT myocardial perfusion imaging was performed in supine position 60 minutes following the int ravenous injection of 12.5 mCi of Tc-99m Sestamibi. Time of rest injection: 1230 Time of rest imagin Administration Route: IV Administration Site: Right Hand Pharmacologic Stress Pharmacologic stress test was performed by injecting Regadenoson 0.4 mg IV push followed by the intra venous injection of 31.5 mCi of Tc-99m Sestamibi. Time of stress injection: 1341 Time of stress imagin Administration Route: IV Administration Site: Right Hand Gated Stress SPECT was performed 60 minutes after stress injection. The images were gated to evaluate regional wall motion and calculate left ventricular ejection fracti on. Stress only was performed in the Supine position. Nuclear Conclusion ECG Findings: negative for ischemia Clinical Findings: negative for ischemia Nuclear Findings: negative for ischemia Exercise Capacity: not assessed Left Ventricular Function: normal Risk Study: low Resting ECG shows normal sinus rhythm. At peak stress level no dynamic EKG changes was noted. Resting images shows near homogeneous uptake of radioactive tracer throughout the myocardium without evidence of myocardial infarction. Stress images shows near homogeneous uptake of radioactive tracer throughout the myocardium without e vidence of myocardial ischemia. Well-preserved left ventricular systolic function at 57%. Impression: Negative stress test for ischemia, low risk study
[2024-02-20] MEDS: FUROSEMIDE 40 MG/4 ML VIAL IV SCH (15:34)
[2024-02-20] MEDS: metOLazone 5 MG TAB PO ONE (15:34)
[2024-02-20] MEDS: ACETAMINOPHEN 325 MG TAB PO PRN (15:35)
--- NOTE | 2024-02-20 15:51 | DVH ---
INDICATION: RENAL FAILURE TECHNIQUE: Multiple real-time sonographic images of the kidneys and bladder were obtained. COMPARISON: None FINDINGS: The right kidney measures 11 cm in length, which is normal in size. Increased echogenicity of the rig ht kidney. No hydronephrosis. The left kidney measures 10 cm in length, which is normal in size. There is normal echogenicity of th e left kidney. Mild left hydronephrosis. Small volume ascites. IMPRESSION: 1. Small left hydronephrosis 2. bilateral medical renal disease. 3. Small volume ascites.
[2024-02-20] MEDS: WARFARIN SODIUM 1 MG TAB PO ONE (18:23)
[2024-02-20] MEDS: METOPROLOL SUCCINATE XL 50 MG TAB PO ONE (18:24)
[2024-02-20 19:33] LABS: Urine Bacteria None Seen /hpf (None Seen)
[2024-02-20 19:40] LABS: Urine Blood Negative /uL (Negative); Urine Clarity Clear (Clear); Urine Color Colorless (Yellow); Urine Protein, UAD Negative (Negative); Urine Specific Gravity 1.008 (1.001-1.035); Urine Urobilinogen Normal (Negative); Urine WBC <1 /hpf (0 - 3)
[2024-02-20 20:34] LABS: Amphetamine Screen, Urine Neg (NEGATIVE); Barbiturate Scree,Urine Neg (NEGATIVE); Benzodiazephine Screen, Urine Neg (NEGATIVE); Cannabinoid Screen, Urine Neg (NEGATIVE); Cocaine Screen, Urine Neg (NEGATIVE); Opiate Scree,Urine Neg (NEGATIVE); Phencyclidine Screen, Urine Neg (NEGATIVE)
[2024-02-20] MEDS: hydrALAZINE HCL 25 MG TAB PO SCH (21:28)
[2024-02-21] VITALS (10 sets, daily range): BP systolic 87–150; BP diastolic 34–69; PULSE 53–76; RESP 16–19; TEMP 97.7–98.6; O2SAT 94–98
[2024-02-21 06:30] LABS: Anion Gap 6 (5-15); Carbon Dioxide 30 mmol/L (20-31); Chloride 105 mmol/L (98-107); Potassium 3.8 mmol/L (3.5-5.1); Sodium 141 mmol/L (136-145)
[2024-02-21 06:31] LABS: Calcium 9.5 mg/dL (8.7-10.4)
[2024-02-21 06:32] LABS: INR 1.72 (0.9-1.15); Prothrombin Time 17.5 sec (9.3-11.8)
[2024-02-21 06:36] LABS: BUN/Creatinine Ratio 9.2 (10.0-20.0); Blood Urea Nitrogen 18 mg/dL (9-23)
[2024-02-21 06:37] LABS: Glucose 118 mg/dL (74-106)
--- NOTE | 2024-02-21 07:57 | ECG ---
[facility] Test Date: 2024-02-19 Test Time: 14:41:43 Pat Name: CRISSY RASHID Department: ER Room: [facility]5T A Gender: M Relations Director: TONYA : 1935 Requested By: KAYLYNN SHER Order Number: [id number] Reading MD: Ramsey Riggs Measurements Intervals [place] Rate: 74 P: 0 [place]: 0 QRS: 125 QRSD: 104 T: -19 QT: 397 QTc: 441 Interpretive Statements Atrial fibrillation Left posterior fascicular block Anteroseptal infarct, age indeterminate Electronically Signed On 02-21-2024 13:07:20 PST by Ramsey Riggs Please click the below link to view image of tracing.
--- NOTE | 2024-02-21 08:29 | DVH ---
CHEST RADIOGRAPH Indication: CHF Technique: Single frontal view of the chest was obtained COMPARISON: XY CHEST PORTABLE on DOS: 02/19/24 FINDINGS: Lines and Tubes: Median sternotomy. Lungs: Congestion. Multifocal airspace disease. Pleura: No effusion. No pneumothorax. Cardiomediastinal contours: Unremarkable Bones: Unremarkable IMPRESSION: No significant interval change.
[2024-02-21] MEDS: METOPROLOL SUCCINATE XL 50 MG TAB PO SCH (10:55)
[2024-02-21] MEDS: LOSARTAN POTASSIUM 50 MG TAB PO SCH (10:56)
--- NOTE | 2024-02-21 11:43 | DVHPN2 ---
Progress Note Date Seen: Feb 21, 2024 Medical Necessity Reason Pt with a Central, PICC or Fol: No Subjective Patient reports: No new complaints Review of Systems: HEENT:Normal, CVS:Normal, RESPIRATORY:Normal, GI:Normal, :Normal, MSK:Normal, NEURO:Normal Objective vital signs Vital Sign Date Time Temp Pulse Resp B/P (MAP) Pulse Ox O2 Delivery O2 Flow Rate FiO2 02/21/24 10:56 150/55 02/21/24 10:55 72 02/21/24 08:41 97.7 17 96 97.7 02/21/24 08:10 Room Air* 0 21 Total Intake and Output 02/20/24 02/20/24 02/21/24 15:00 23:00 07:00 Intake Total 1240 ml 600 ml Output Total 1000 ml Balance 1240 ml -400 ml medications Current Medications Medications Dose Ordered Sig/Robbie Route Start Time Stop Time Status Last Admin Dose Admin Atorvastatin Calcium 40 mg HS PO 02/19/24 22:00 02/20/24 21:28 40 MG Warfarin Sodium RX PROTOCOL PER PHARMACY PO 02/19/24 20:15 Aspirin 81 mg DAILY PO 02/20/24 10:00 02/21/24 10:56 81 MG Temazepam 15 mg QHSP PRN PO 02/19/24 20:15 Ondansetron HCl 4 mg Q4HP PRN IV 02/19/24 20:15 Acetaminophen 650 mg Q6HP PRN PO 02/19/24 20:15 02/20/24 15:35 650 MG Nitroglycerin 0.4 mg Q5MINP PRN SL 02/19/24 20:15 Morphine Sulfate 2 mg Q30M PRN IV 02/19/24 20:15 Furosemide 40 mg BIDD IV 02/20/24 10:45 02/21/24 06:15 40 MG Metoprolol Succinate 25 mg DAILY PO 02/21/24 10:00 02/21/24 10:55 25 MG Losartan Potassium 50 mg DAILY PO 02/21/24 10:00 02/21/24 10:56 50 MG Hydralazine HCl 25 mg Q12HR PO 02/20/24 22:00 02/21/24 10:55 25 MG Examination: GENERAL:Normal, HEENT:Normal, NECK:Normal, LUNGS:Normal, LUNGS:Abnormal (rales+), CVS:Normal, ABDOMEN:Normal, MSK:Normal, SKIN:Normal, NEURO:Normal, :Normal laboratory and microbiology Laboratory Tests 02/21/24 05:18 02/20/24 07:04 Test 02/21/24 05:18 Range/Units Serum Glucose 118 H 74-106 mg/dL Problem List/Assessment/Plan Problem List/Assessment/Plan #1 acute on chronic diastolic heart failure: lasix iv #2 htn #3 ckd stage 3b: usg #4 h/o avr: on coumadin #5 anemia #6 cad: stress test- negative advance care planning- full code- time spent 19 mins Plan discussed with: Patient My Orders My Orders Orders - NASIR JAMA MD Procedure Category Date Status Time Losartan Tablet PHA 02/21/24 In Process (Cozaar Tablet) 10:00 Hydralazine Hcl PHA 02/20/24 In Process Tablet (Apresoline 22:00 Kidney US 02/20/24 Resulted 13:55 Chest Portable XY 02/21/24 Resulted 06:00 Dietary Evaluation Review Comments: 1. Consider CCHO-60g, Renal Specifi-60g, 2GNA 3K, low phos diet 2. Consider not be on low fat low cholesterol diet because his lipid pannel appears to be WNL, 3. Counseld family/son regarding to a low salt Lithuanian style meals and adjusting his food choice to have a low sugar diet. Expected Outcomes/Goals: Controlled DM and avoid toxic uremic symdromes. gradual weight gain Date of Service: Feb 21, 2024 Billing Provider: NASIR JAMA MD Common Visit Codes: [id number] INP/OBS CARE(HIGH) NASIR JAMA MD Feb 21, 2024 11:43
--- NOTE | 2024-02-21 13:02 | DVHPNRES ---
Progress Note Date Seen: Feb 21, 2024 Resident Creating Document: DENTON ARANDA RESIDENT Medical Necessity Reason Pt with a Central, PICC or Fol: No Subjective Review of Systems Patient seen and examined at the bedside. Patient reported improvement in his symptoms since admission, reported no new complaints. Patient reports: No new complaints, Feels better Objective vital signs Vital Sign Date Time Temp Pulse Resp B/P (MAP) Pulse Ox O2 Delivery O2 Flow Rate FiO2 02/21/24 12:54 98.2 72 18 135/61 (85) 97 98.2 02/21/24 08:10 Room Air* 0 21 Total Intake and Output 02/20/24 02/20/24 02/21/24 15:00 23:00 07:00 Intake Total 1240 ml 600 ml Output Total 1000 ml Balance 1240 ml -400 ml medications Current Medications Medications Dose Ordered Sig/Robbie Route Start Time Stop Time Status Last Admin Dose Admin Atorvastatin Calcium 40 mg HS PO 02/19/24 22:00 02/20/24 21:28 40 MG Warfarin Sodium RX PROTOCOL PER PHARMACY PO 02/19/24 20:15 Aspirin 81 mg DAILY PO 02/20/24 10:00 02/21/24 10:56 81 MG Temazepam 15 mg QHSP PRN PO 02/19/24 20:15 Ondansetron HCl 4 mg Q4HP PRN IV 02/19/24 20:15 Acetaminophen 650 mg Q6HP PRN PO 02/19/24 20:15 02/20/24 15:35 650 MG Nitroglycerin 0.4 mg Q5MINP PRN SL 02/19/24 20:15 Morphine Sulfate 2 mg Q30M PRN IV 02/19/24 20:15 Furosemide 40 mg BIDD IV 02/20/24 10:45 02/21/24 06:15 40 MG Metoprolol Succinate 25 mg DAILY PO 02/21/24 10:00 02/21/24 10:55 25 MG Losartan Potassium 50 mg DAILY PO 02/21/24 10:00 02/21/24 10:56 50 MG Hydralazine HCl 25 mg Q12HR PO 02/20/24 22:00 02/21/24 10:55 25 MG Examination General Appearance: Alert, Oriented X3, Cooperative, Not in acute distress HEENT: Atraumatic, Mucous membranes moist/pink Respiratory: Clear to auscultation, Normal air movement, mild crackles Cardiovascular: Regular rate, Normal S1, Normal S2, No murmurs Abdominal: Active bowel sounds, Soft, no distention, no tenderness Extremities: 2-3+ BLE, Normal pulses, mild tenderness Skin: No Significant rash, except past surgical scars Neuro: Normal speech, sensorimotor deficits none Psych/Mental Status: Mental status NL, Mood NL Nurse was there as sharperone during examination laboratory and microbiology Laboratory Tests 02/21/24 05:18 02/20/24 07:04 Test 02/21/24 05:18 Range/Units Serum Glucose 118 H 74-106 mg/dL Labs and/or images reviewed: Labs reviewed by me, Image(s) reviewed by me Problem List/Assessment/Plan Problem List/Assessment/Plan Acute on chronic HFpEf with EF 55% 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 DOLORES on CKD Plan/Recommendation We will continue with the following plan/recommendations (Dr. Alvarez): Echocardiogram showed EF 55% with a grade 1 diastolic dysfunction Guideline directed medical therapy for CHF as renal function and BP permits Scheduled stress test Lasix 40 mg IV b.i.d., metolazone 2.5 mg once every tuesday BP control Lipid-lowering agent DVT/VTE prophylaxis Risk factor modification, counseled Dietary changes Limiting sodium intake Strict INOs Maintaining fluid restriction, daily weight Consider Nephrology evaluation Stress test is negative for ischemia, low risk study Case discussed with Dr. Scott, optimal medical treatment, as renal function and BP permits. We are setting off, thank you for allowing us to participate in patient care. Reconsult if needed. Plan discussed with: Patient My Orders My Orders Orders - DENTON ARANDA RESIDENT Procedure Category Date Status Time Metoprolol Xl PHA 02/21/24 In Process Succinate (Toprol Xl) 10:00 Dietary Evaluation Review Comments: 1. Consider CCHO-60g, Renal Specifi-60g, 2GNA 3K, low phos diet 2. Consider not be on low fat low cholesterol diet because his lipid pannel appears to be WNL, 3. Counseld family/son regarding to a low salt Hungarian style meals and adjusting his food choice to have a low sugar diet. Expected Outcomes/Goals: Controlled DM and avoid toxic uremic symdromes. gradual weight gain Visit Coding Cardiology RES Date of Service: Feb 21, 2024 Billing Provider: SURENDRA SCOTT MD Cardiology Common Codes: [id number] INP/OBS CARE(Mod) DENTON ARANDA RESIDENT Feb 21, 2024 13:02
[2024-02-21] MEDS ORDERED: MEGESTROL ACET 400MG/10ML ORAL SUSP PO SCH (18:00)
[2024-02-21] MEDS: MEGESTROL ACET 400MG/10ML ORAL SUSP PO SCH (18:05)
[2024-02-21] MEDS: WARFARIN SODIUM 1 MG TAB PO ONE (18:05)
[2024-02-22] VITALS (8 sets, daily range): BP systolic 81–133; BP diastolic 36–64; PULSE 60–80; RESP 16–20; TEMP 97.8–98.7; O2SAT 92–96
[2024-02-22 05:52] LABS: Basophils # (auto) 0 10 ^3/uL (0-0.2); Basophils % (auto) 0.3 % (0.0-2.0); Eosinophils # (auto) 0.2 10 ^3/uL (0-0.8); Eosinophils % (auto) 3.1 % (0.0-7.0); Hematocrit 30.6 % (41.0-53.0); Hemoglobin 10.1 g/dL (13.5-17.5); Lymphocytes # (auto) 1.4 10 ^3/uL (0.4-5.4); Lymphocytes % (auto) 26.1 % (10.0-50.0); Mean Corpuscular Hemoglobin 27.5 pg (28.0-32.0); Mean Corpuscular Volume 83.3 fL (80.0-100.0); Monocytes # (auto) 0.4 10 ^3/uL (0-1.3); Monocytes % (auto) 7.6 % (0.0-12.0); Neutrophils # (auto) 3.3 10 ^3/uL (1.6-8.6); Neutrophils % (auto) 62.9 % (37.0-80.0); Nucleated Red Blood Cells % 0.1 %; Platelet Count (auto) 178 10^3/uL (140-450); Red Blood Cells 3.67 10^6/uL (4.5-5.90); Red Cell Distribution Width 18.1 % (11.8-14.3); White Blood Cell 5.3 10^3/uL (4.4-10.8)
[2024-02-22 06:02] LABS: Anion Gap 8 (5-15); Chloride 102 mmol/L (98-107); Sodium 142 mmol/L (136-145)
[2024-02-22 06:03] LABS: Calcium 9.1 mg/dL (8.7-10.4)
[2024-02-22 06:07] LABS: BUN/Creatinine Ratio 10.6 (10.0-20.0); Blood Urea Nitrogen 21 mg/dL (9-23)
[2024-02-22 06:16] LABS: INR 1.57 (0.9-1.15); Partial Thromboplastin Time 30.4 SEC (24.5-34.5); Prothrombin Time 16.1 sec (9.3-11.8)
[2024-02-22 07:01] LABS: Carbon Dioxide 32 mmol/L (20-31); Glucose 135 mg/dL (74-106); Potassium 3.4 mmol/L (3.5-5.1)
--- NOTE | 2024-02-22 11:58 | DVHPN2 ---
Subjective The patient seen and examined at bedside. No complaint today. Reviewed: Care Plan, H&P, Labs, Medications, Previous Orders, Radiology Changes from previous H/P or p: No Changes Objective Vitals Vital Signs Date Time Temp Pulse Resp B/P (MAP) Pulse Ox O2 Delivery O2 Flow Rate FiO2 02/22/24 10:36 139/67 02/22/24 10:35 60 02/22/24 08:59 98.7 18 93 98.7 02/22/24 08:00 Room Air* 0 21 Intake/Output Intake and Output 02/22/24 07:00 Intake Total 845 ml Balance 845 ml Intake Oral 845 ml # Voids 10 General Appearance: Alert, Cooperative, No acute distress HEENT: Atraumatic, PERRLA, EOMI, Mucous membr. moist/pink Neck: Supple Lungs: Clear to auscultation, Normal air movement Cardiovascular: Regular rate, Normal S1, Normal S2, No murmurs, Gallops, Rubs Abdomen: Normal bowel sounds, Soft, No tenderness Neuro: Cranial nerves 3-12 NL Psych/Mental Status: Mental status NL Medications Current Medications Medications Dose Ordered Sig/Robbie Route Start Time Stop Time Status Last Admin Dose Admin Atorvastatin Calcium 40 mg HS PO 02/19/24 22:00 02/21/24 22:24 40 MG Warfarin Sodium RX PROTOCOL PER PHARMACY PO 02/19/24 20:15 Aspirin 81 mg DAILY PO 02/20/24 10:00 02/22/24 10:35 81 MG Temazepam 15 mg QHSP PRN PO 02/19/24 20:15 Ondansetron HCl 4 mg Q4HP PRN IV 02/19/24 20:15 Acetaminophen 650 mg Q6HP PRN PO 02/19/24 20:15 02/20/24 15:35 650 MG Nitroglycerin 0.4 mg Q5MINP PRN SL 02/19/24 20:15 Morphine Sulfate 2 mg Q30M PRN IV 02/19/24 20:15 Furosemide 40 mg BIDD IV 02/20/24 10:45 02/22/24 06:10 40 MG Metoprolol Succinate 25 mg DAILY PO 02/21/24 10:00 02/22/24 10:35 25 MG Losartan Potassium 50 mg DAILY PO 02/21/24 10:00 02/22/24 10:35 50 MG Hydralazine HCl 25 mg Q12HR PO 02/20/24 22:00 02/22/24 10:36 25 MG Megestrol Acetate 400 mg BID@0600,1800 PO 02/21/24 18:00 02/22/24 06:11 400 MG Laboratory Results Laboratory Tests 02/22/24 05:07 Chemistry Test 02/22/24 05:07 Calcium Level 9.1 mg/dL (8.7-10.4) Coagulation Test 02/22/24 05:07 Prothrombin Time 16.1 sec (9.3-11.8) H Prothrombin Time INR 1.57 (0.9-1.15) H Activated Partial Thromboplast Time 30.4 SEC (24.5-34.5) Urinalysis Test 02/20/24 19:31 Urine Color Colorless (Yellow) Urine Clarity Clear (Clear) Urine pH 7.0 (5.0-9.0) Urine Specific [place] 1.008 (1.001-1.035) Urine Protein Negative (Negative) Urine Ketones Negative (Negative) Urine Blood Negative /uL (Negative) Urine Nitrite Negative (Negative) Urine Bilirubin Negative (Negative) Urine Urobilinogen Normal mg/dL (Negative) Urine Leukocyte Esterase Negative /uL (Negative) Urine RBC 1 /hpf (0 - 3) Urine WBC <1 /hpf (0 - 3) Urine Squamous Epithelial Cells Few /hpf (<5) Urine Bacteria None seen /hpf (None Seen) Urine Glucose Normal mg/dL (Normal) Labs and/or images reviewed: Labs reviewed by me Assessment/Plan Assessment/Plan #1 acute on chronic diastolic heart failure #2 htn #3 ckd stage 3b: usg #4 h/o avr: on coumadin #5 anemia #6 cad: stress test- negative Continuing current management with Lasix IV. Continuing with hypertensive medication. Continuing with Coumadin. We will consulted immunochemist. Patient had no immunochemist as outpatient. Discussed with patient and son at bedside in length. This medical document was created using an electronic medical record system with [employer] direct computerized dictation system. Although this document has been carefully reviewed, there may still be some phonetic and typographical errors. These areas are purely typographical due to imperfections of the software programs, and do not reflect any compromise in the patient's medical care. Plan discussed with: Patient, Son Date of Service: Feb 22, 2024 Billing Provider: KULDEEP HENSON MD Common Visit Codes: [id number] INP/OBS CARE(HIGH) KULDEEP HENSON MD Feb 22, 2024 11:58
[2024-02-22] MEDS: POTASSIUM CHL 20 Meq TABLET PO ONE (14:48)
[2024-02-22] MEDS: WARFARIN SODIUM 5 MG TAB PO ONE (18:11)
[2024-02-23 01:00] VITALS: BP 99/40; PULSE 78; RESP 16; TEMP 98.7; O2SAT 94
[2024-02-23 05:00] VITALS: BP 118/63; PULSE 68; RESP 16; TEMP 98; O2SAT 95
[2024-02-23 07:13] LABS: Basophils # (auto) 0 10 ^3/uL (0-0.2); Basophils % (auto) 0.4 % (0.0-2.0); Eosinophils # (auto) 0.1 10 ^3/uL (0-0.8); Eosinophils % (auto) 1.4 % (0.0-7.0); Hematocrit 34.3 % (41.0-53.0); Hemoglobin 11.5 g/dL (13.5-17.5); Lymphocytes # (auto) 1.7 10 ^3/uL (0.4-5.4); Lymphocytes % (auto) 27.6 % (10.0-50.0); Mean Corpuscular Hemoglobin 27.7 pg (28.0-32.0); Mean Corpuscular Hgb Conc. 33.6 g/dL (32.0-36.0); Mean Corpuscular Volume 82.6 fL (80.0-100.0); Monocytes # (auto) 0.5 10 ^3/uL (0-1.3); Monocytes % (auto) 7.4 % (0.0-12.0); Neutrophils % (auto) 63.2 % (37.0-80.0); Platelet Count (auto) 212 10^3/uL (140-450); Red Blood Cells 4.15 10^6/uL (4.5-5.90); White Blood Cell 6.3 10^3/uL (4.4-10.8)
[2024-02-23 07:26] LABS: INR 1.71 (0.9-1.15); Partial Thromboplastin Time 29.1 SEC (24.5-34.5); Prothrombin Time 17.4 sec (9.3-11.8)
[2024-02-23 08:00] VITALS: PULSE 77
[2024-02-23 09:00] VITALS: BP 98/50; PULSE 72; RESP 18; TEMP 97.9; O2SAT 95
--- NOTE | 2024-02-23 10:39 | DVHDS2 ---
Discharge Summary Date of Admission Feb 19, 2024 at 20:02 Date of Discharge: Feb 23, 2024 Labs/Diagnostic Data: Laboratory Results Test 02/23/24 06:22 02/22/24 05:07 02/20/24 19:31 02/20/24 07:04 White Blood Count 6.3 10^3/uL (4.4-10.8) Red Blood Count 4.15 10^6/uL (4.5-5.90) Hemoglobin 11.5 g/dL (13.5-17.5) Hematocrit 34.3 % (41.0-53.0) Mean Corpuscular Volume 82.6 fL (80.0-100.0) Mean Corpuscular Hemoglobin 27.7 pg (28.0-32.0) Mean Corpuscular Hemoglobin Concent 33.6 g/dL (32.0-36.0) Red Cell Distribution Width 18.0 % (11.8-14.3) Platelet Count 212 10^3/uL (140-450) Mean Platelet Volume 8.0 fL (6.9-10.8) Neutrophils (%) (Auto) 63.2 % (37.0-80.0) Lymphocytes (%) (Auto) 27.6 % (10.0-50.0) Monocytes (%) (Auto) 7.4 % (0.0-12.0) Eosinophils (%) (Auto) 1.4 % (0.0-7.0) Basophils (%) (Auto) 0.4 % (0.0-2.0) Neutrophils # (Auto) 4.0 10 ^3/uL (1.6-8.6) Lymphocytes # (Auto) 1.7 10 ^3/uL (0.4-5.4) Monocytes # (Auto) 0.5 10 ^3/uL (0-1.3) Eosinophils # (Auto) 0.1 10 ^3/uL (0-0.8) Basophils # (Auto) 0 10 ^3/uL (0-0.2) Nucleated Red Blood Cells 0.0 % Prothrombin Time 17.4 sec (9.3-11.8) Prothrombin Time INR 1.71 (0.9-1.15) Activated Partial Thromboplast Time 29.1 SEC (24.5-34.5) Creatinine 2.28 mg/dL (0.700-1.30) Glomerular Filtration Rate Calc 27 mL/min (>90) Sodium Level 142 mmol/L (136-145) Potassium Level 3.4 mmol/L (3.5-5.1) Chloride Level 102 mmol/L (98-107) Carbon Dioxide Level 32 mmol/L (20-31) Anion Gap 8 (5-15) Blood Urea Nitrogen 21 mg/dL (9-23) BUN/Creatinine Ratio 10.6 (10.0-20.0) Serum Glucose 135 mg/dL (74-106) Calcium Level 9.1 mg/dL (8.7-10.4) Urine Color Colorless (Yellow) Urine Clarity Clear (Clear) Urine pH 7.0 (5.0-9.0) Urine Specific [place] 1.008 (1.001-1.035) Urine Protein Negative (Negative) Urine Ketones Negative (Negative) Urine Blood Negative /uL (Negative) Urine Nitrite Negative (Negative) Urine Bilirubin Negative (Negative) Urine Urobilinogen Normal mg/dL (Negative) Urine Leukocyte Esterase Negative /uL (Negative) Urine RBC 1 /hpf (0 - 3) Urine WBC <1 /hpf (0 - 3) Urine Squamous Epithelial Cells Few /hpf (<5) Urine Bacteria None seen /hpf (None Seen) Urine Glucose Normal mg/dL (Normal) Urine Opiates Screen Neg (NEGATIVE) Urine Fentanyl Screen Neg (NEGATIVE) Urine Barbiturates Screen Neg (NEGATIVE) Urine Phencyclidine Screen Neg (NEGATIVE) Urine Amphetamines Screen Neg (NEGATIVE) Urine Benzodiazepines Screen Neg (NEGATIVE) Urine Cocaine Screen Neg (NEGATIVE) Urine Cannabinoids Screen Neg (NEGATIVE) Hemoglobin A1c 6.8 % A1C (<5.7) Magnesium Level 2.1 mg/dL (1.6-2.6) Total Bilirubin 1.2 mg/dL (0.2-1.0) Direct Bilirubin 0.5 mg/dL (<0.3) Aspartate Amino Transferase (AST) 18 U/L (13-40) Alanine Aminotransferase (ALT) < 9 U/L (7-40) Alkaline Phosphatase 82 U/L (46-116) Total Protein 5.7 g/dL (5.7-8.2) Albumin 3.5 g/dL (3.2-4.8) Triglycerides Level 83 mg/dL (< 150) Cholesterol Level 109 mg/dL (< 200) LDL Cholesterol 46 mg/dL (< 100) HDL Cholesterol 45 mg/dL (40-59) Thyroid Stimulating Hormone (TSH) 4.17 uIU/mL (0.55-4.78) Plasma/Serum Blood Alcohol < 3.0 mg/dL (<10) Test 02/19/24 18:05 02/19/24 15:00 Troponin I High Sensitivity 53 ng/L (</=54) B-Type Natriuretic Peptide 484.46 pg/mL (0-100) Other Laboratory Tests 02/23/24 06:22 02/22/24 05:07 Brief Hx & Hospital Course: SEE DICTATED NOTE Condition at Discharge: Fair Final Diagnosis/Problems List CHF Discharge Disposition: Home Discharge Instruct/Medications Diet: Cardiac 2g Na,low cholest Activity: No Restrictions, As Tolerated Follow Up/Referral: FU WITH PCP IN 1 WK Medications: RESUME HOME MEDS Discharge Statement: "Patient was advised to return to the ER or call 911 if any headaches, dizziness, shortness of breath, chest pain, abdominal pain, bleeding, fevers, or worsening of medical condition. Patient was counseled about treatment plan, medications, possible side effects, patientverbalized understanding. All questions were answered to the best of my ability. This discharge took greater then 30 minutes in planning, reviewing documentation, counseling the patient, and discussing with other team members." ASSESSMENT ASSESSMENT Assessment CHF Date of Service: Feb 23, 2024 Billing Provider: NASIR JAMA MD Common Visit Codes: [id number] DISCH DAY >30min NASIR JAMA MD Feb 23, 2024 10:39
--- NOTE | 2024-02-23 10:47 | DVHDS ---
DATE OF DISCHARGE: 02/23/2024 HISTORY OF PRESENT ILLNESS: The patient is an 88-year-old gentleman who was admitted with history of increasing shortness of breath and bilateral lower extremity edema. The patient has history of congestive heart failure, diabetes, hypertension, hyperlipidemia. He also has history of coronary artery disease. HOSPITAL COURSE: The patient had an echocardiogram done that showed ejection fraction of 55%. The patient was diuresed with intravenous Lasix. He has history of chronic kidney disease. The patient underwent a Cardiolite stress test that was negative for any ischemia. He had a renal ultrasound that showed bilateral medical renal disease. The patient's Doppler of lower extremities was negative for DVT. The patient is now improving the symptoms. He will be discharged to resume his home medications and follow up with his primary in one week. FINAL DIAGNOSES: Therefore, * Acute on chronic diastolic heart failure. * Hypertension. * Chronic kidney disease, stage IIIB. * History of aortic valve replacement. * Anemia. * Coronary artery disease for which the stress test was negative. Time spent in discharge planning and review of plan with the patient and nursing was 38 minutes. MD NINO Allen/ANTHONY TID: [id number] RECEIPT: [id number]
--- NOTE | 2024-02-23 11:24 | DVHINCON2 ---
Date of service: Feb 23, 2024 Referring Physician Reason for Consultation Acute kidney injury History of Present Illness Patient is 88-year-old poor historian apparently with past medical history of chronic congestive heart failure atrial fibrillation is admitted for chest pain, shortness of breath and bilateral lower extremity swelling. On admission patient found to have elevated BUN creatinine nephrology is consulted for acute kidney injury Past Medical History Chronic congestive heart failure AFib Past Surgical History Patient denies Allergies: Coded Allergies: NO KNOWN ALLERGIES (Unverified , 02/19/24) Home Meds Unable to Obtain Active Prescriptions or Reported Meds Current Medications Current Medications Medications (Trade) Dose Ordered Sig/Robbie Route PRN Reason Start Time Stop Time Status Last Admin Hydralazine HCl (Apresoline Tablet) 10 mg Q12HR PO 02/23/24 11:30 02/23/24 13:28 Family History: Patient reports no known family medical history. H&P Exam Vital Signs/I&O Vital Sign Date Time Temp Pulse Resp B/P (MAP) Pulse Ox O2 Delivery O2 Flow Rate FiO2 02/23/24 13:28 127/54 02/23/24 11:34 72 02/23/24 09:00 97.9 18 95 97.9 02/23/24 07:30 Room Air* 0 21 Intake and Output 02/22/24 02/23/24 19:00 07:00 Intake Total 700 ml 100 ml Output Total 1200 ml 300 ml Balance -500 ml -200 ml Intake Oral 700 ml 100 ml Output Urine Total 1200 ml 300 ml Physical Exam Patient is awake alert appeared in no acute distress Lungs clear to auscultation bilaterally Cardiac exam regular rate and rhythm GI soft nontender was normal Extremity 1+ edema Neuro nonfocal Labs/Diagnostic Data Labs/Diagnostic Data Laboratory Tests Test 02/23/24 06:22 02/22/24 05:07 02/21/24 05:18 02/20/24 19:31 Range/Units White Blood Count 6.3 5.3 # 4.4-10.8 10^3/uL Red Blood Count 4.15 L 3.67 L 4.5-5.90 10^6/uL Hemoglobin 11.5 L 10.1 L 13.5-17.5 g/dL Hematocrit 34.3 #L 30.6 L 41.0-53.0 % Mean Corpuscular Volume 82.6 83.3 80.0-100.0 fL Mean Corpuscular Hemoglobin 27.7 L 27.5 L 28.0-32.0 pg Mean Corpuscular Hemoglobin Concent 33.6 33.0 32.0-36.0 g/dL Red Cell Distribution Width 18.0 H 18.1 H 11.8-14.3 % Platelet Count 212 178 140-450 10^3/uL Mean Platelet Volume 8.0 7.8 6.9-10.8 fL Neutrophils (%) (Auto) 63.2 62.9 37.0-80.0 % Lymphocytes (%) (Auto) 27.6 26.1 10.0-50.0 % Monocytes (%) (Auto) 7.4 7.6 0.0-12.0 % Eosinophils (%) (Auto) 1.4 3.1 0.0-7.0 % Basophils (%) (Auto) 0.4 0.3 0.0-2.0 % Neutrophils # (Auto) 4.0 3.3 1.6-8.6 10 ^3/uL Lymphocytes # (Auto) 1.7 1.4 0.4-5.4 10 ^3/uL Monocytes # (Auto) 0.5 0.4 0-1.3 10 ^3/uL Eosinophils # (Auto) 0.1 0.2 0-0.8 10 ^3/uL Basophils # (Auto) 0 0 0-0.2 10 ^3/uL Nucleated Red Blood Cells 0.0 0.1 % Prothrombin Time 17.4 H 16.1 H 17.5 H 9.3-11.8 sec Prothrombin Time INR 1.71 H 1.57 H 1.72 H 0.9-1.15 Activated Partial Thromboplast Time 29.1 30.4 24.5-34.5 SEC Creatinine 2.28 H 1.98 H 1.96 H 0.700-1.30 mg/dL Glomerular Filtration Rate Calc 27 32 33 >90 mL/min Phosphorus Level 3.9 2.4-5.1 mg/dL Magnesium Level 1.8 1.6-2.6 mg/dL Vitamin D 25-Hydroxy 17.3 L 30.0-100 ng/mL Parathyroid Hormone (Intact) 156.5 H 18.4-80.1 pg/mL Sodium Level 142 141 136-145 mmol/L Potassium Level 3.4 L 3.8 3.5-5.1 mmol/L Chloride Level 102 105 98-107 mmol/L Carbon Dioxide Level 32 H 30 20-31 mmol/L Anion Gap 8 6 5-15 Blood Urea Nitrogen 21 18 9-23 mg/dL BUN/Creatinine Ratio 10.6 9.2 L 10.0-20.0 Serum Glucose 135 H 118 H 74-106 mg/dL Calcium Level 9.1 9.5 8.7-10.4 mg/dL Urine Color Colorless Yellow Urine Clarity Clear Clear Urine pH 7.0 5.0-9.0 Urine Specific [place] 1.008 1.001-1.035 Urine Protein Negative Negative Urine Ketones Negative Negative Urine Blood Negative Negative /uL Urine Nitrite Negative Negative Urine Bilirubin Negative Negative Urine Urobilinogen Normal Negative mg/dL Urine Leukocyte Esterase Negative Negative /uL Urine RBC 1 0 - 3 /hpf Urine WBC <1 0 - 3 /hpf Urine Squamous Epithelial Cells Few <5 /hpf Urine Bacteria None seen None Seen /hpf Urine Glucose Normal Normal mg/dL Urine Opiates Screen Neg NEGATIVE Urine Fentanyl Screen Neg NEGATIVE Urine Barbiturates Screen Neg NEGATIVE Urine Phencyclidine Screen Neg NEGATIVE Urine Amphetamines Screen Neg NEGATIVE Urine Benzodiazepines Screen Neg NEGATIVE Urine Cocaine Screen Neg NEGATIVE Urine Cannabinoids Screen Neg NEGATIVE Test 02/20/24 07:04 02/19/24 20:35 02/19/24 18:05 02/19/24 16:40 Range/Units White Blood Count 4.2 L 4.4-10.8 10^3/uL Red Blood Count 3.66 L 4.5-5.90 10^6/uL Hemoglobin 10.1 L 13.5-17.5 g/dL Hematocrit 31.1 L 41.0-53.0 % Mean Corpuscular Volume 84.9 80.0-100.0 fL Mean Corpuscular Hemoglobin 27.5 L 28.0-32.0 pg Mean Corpuscular Hemoglobin Concent 32.4 32.0-36.0 g/dL Red Cell Distribution Width 18.4 H 11.8-14.3 % Platelet Count 165 140-450 10^3/uL Mean Platelet Volume 8.0 6.9-10.8 fL Neutrophils (%) (Auto) 63.9 37.0-80.0 % Lymphocytes (%) (Auto) 24.0 10.0-50.0 % Monocytes (%) (Auto) 6.5 0.0-12.0 % Eosinophils (%) (Auto) 4.9 0.0-7.0 % Basophils (%) (Auto) 0.7 0.0-2.0 % Neutrophils # (Auto) 2.7 1.6-8.6 10 ^3/uL Lymphocytes # (Auto) 1.0 0.4-5.4 10 ^3/uL Monocytes # (Auto) 0.3 0-1.3 10 ^3/uL Eosinophils # (Auto) 0.2 0-0.8 10 ^3/uL Basophils # (Auto) 0 0-0.2 10 ^3/uL Nucleated Red Blood Cells 0.0 % Sodium Level 143 136-145 mmol/L Potassium Level 4.6 3.5-5.1 mmol/L Chloride Level 111 H 98-107 mmol/L Carbon Dioxide Level 26 20-31 mmol/L Anion Gap 6 5-15 Blood Urea Nitrogen 20 9-23 mg/dL Creatinine 1.99 H 0.700-1.30 mg/dL Glomerular Filtration Rate Calc 32 >90 mL/min BUN/Creatinine Ratio 10.1 10.0-20.0 Serum Glucose 122 H 74-106 mg/dL Hemoglobin A1c 6.8 H <5.7 % A1C Calcium Level 9.2 8.7-10.4 mg/dL Magnesium Level 2.1 1.6-2.6 mg/dL Total Bilirubin 1.2 H 0.2-1.0 mg/dL Direct Bilirubin 0.5 H <0.3 mg/dL Aspartate Amino Transferase (AST) 18 13-40 U/L Alanine Aminotransferase (ALT) < 9 7-40 U/L Alkaline Phosphatase 82 46-116 U/L Total Protein 5.7 5.7-8.2 g/dL Albumin 3.5 3.2-4.8 g/dL Triglycerides Level 83 < 150 mg/dL Cholesterol Level 109 < 200 mg/dL LDL Cholesterol 46 < 100 mg/dL HDL Cholesterol 45 40-59 mg/dL Thyroid Stimulating Hormone (TSH) 4.17 0.55-4.78 uIU/mL Plasma/Serum Blood Alcohol < 3.0 <10 mg/dL Prothrombin Time 20.0 H 9.3-11.8 sec Prothrombin Time INR 1.99 H 0.9-1.15 Activated Partial Thromboplast Time 31.9 24.5-34.5 SEC Troponin I High Sensitivity 53 50 </=54 ng/L Test 02/19/24 15:00 Range/Units White Blood Count 4.0 L 4.4-10.8 10^3/uL Red Blood Count 3.70 L 4.5-5.90 10^6/uL Hemoglobin 10.2 L 13.5-17.5 g/dL Hematocrit 32.3 L 41.0-53.0 % Mean Corpuscular Volume 87.5 80.0-100.0 fL Mean Corpuscular Hemoglobin 27.5 L 28.0-32.0 pg Mean Corpuscular Hemoglobin Concent 31.5 L 32.0-36.0 g/dL Red Cell Distribution Width 18.5 H 11.8-14.3 % Platelet Count 156 140-450 10^3/uL Mean Platelet Volume 8.0 6.9-10.8 fL Neutrophils (%) (Auto) 68.1 37.0-80.0 % Lymphocytes (%) (Auto) 21.5 10.0-50.0 % Monocytes (%) (Auto) 6.6 0.0-12.0 % Eosinophils (%) (Auto) 3.1 0.0-7.0 % Basophils (%) (Auto) 0.7 0.0-2.0 % Neutrophils # (Auto) 2.7 1.6-8.6 10 ^3/uL Lymphocytes # (Auto) 0.8 0.4-5.4 10 ^3/uL Monocytes # (Auto) 0.3 0-1.3 10 ^3/uL Eosinophils # (Auto) 0.1 0-0.8 10 ^3/uL Basophils # (Auto) 0 0-0.2 10 ^3/uL Nucleated Red Blood Cells 0.1 % Sodium Level 143 136-145 mmol/L Potassium Level 5.0 3.5-5.1 mmol/L Chloride Level 112 H 98-107 mmol/L Carbon Dioxide Level 25 20-31 mmol/L Anion Gap 6 5-15 Blood Urea Nitrogen 23 9-23 mg/dL Creatinine 1.95 H 0.700-1.30 mg/dL Glomerular Filtration Rate Calc 33 >90 mL/min BUN/Creatinine Ratio 11.8 10.0-20.0 Serum Glucose 144 H 74-106 mg/dL Calcium Level 8.9 8.7-10.4 mg/dL Troponin I High Sensitivity 54 </=54 ng/L B-Type Natriuretic Peptide 484.46 0-100 pg/mL Assessment Acute kidney injury superimposed Chronic Kidney Disease secondary hemodynamic mediated Chronic diastolic heart failure Atrial fibrillation Hypotension Hypokalemia Left hydronephrosis Metabolic alkalosis due to aggressive diuresis Recommendations Closely monitoring fluid and electrolytes Avoid nephrotoxic medications Reed catheter Strict I&Os Hold losartan due to low blood pressure Decrease furosemide to 40 once daily KCL replacement Kidney ultrasound reported left hydronephrosis and bilateral echogenic kidney Check urine electrolytes and urine protein excretion Urology consult We will continue to follow Patient seen and examined by myself. I discussed my plan of care with the patient and the primary nurse at the bedside I would like to thank for the consult, will continue to follow up Plan discussed with: Patient LESIA PASTRANA MD Feb 23, 2024 11:24
[2024-02-23 11:34] VITALS: PULSE 72
[2024-02-23 12:00] VITALS: BP 127/54; PULSE 77; RESP 18; TEMP 98.2; O2SAT 94
[2024-02-23 12:12] LABS: Magnesium 1.8 mg/dL (1.6-2.6)
[2024-02-23 12:14] LABS: Phosphorus 3.9 mg/dL (2.4-5.1)
[2024-02-23] MEDS: hydrALAZINE HCL 25 MG TAB PO SCH (13:28)
[2024-02-23] MEDS ORDERED: MEGE20TA3 PO (14:15)
[2024-02-23] MEDS ORDERED: WARFARIN SODIUM 5 MG TAB PO ONE (17:00)
== END 2024-02-23 13:56 | disposition home or self-care (01) | DRG 291 ==
LOC: EDBD 14:23 → ER 14:23 → TELE 20:02 → TELE-WESTW 20:08
PROVIDERS: ADMIT Nurse Practitioner; ATTEND Internal Medicine
DX: I13.0 Hypertensive heart and chronic kidney disease with heart failure and stage 1 through stage 4 chronic kidney disease, or unspecified chronic kidney disease (principal); I50.33 Acute on chronic diastolic (congestive) heart failure; E87.3 Alkalosis; N17.9 Acute kidney failure, unspecified; N13.30 Unspecified hydronephrosis; D64.9 Anemia, unspecified; N18.32 Chronic kidney disease, stage 3b; E87.6 Hypokalemia; E11.22 Type 2 diabetes mellitus with diabetic chronic kidney disease; I25.10 Atherosclerotic heart disease of native coronary artery without angina pectoris; E78.5 Hyperlipidemia, unspecified; I48.91 Unspecified atrial fibrillation; Z95.2 Presence of prosthetic heart valve
CPT/HCPCS: 36415; 71045; 76775; 78452; 80048; 80061; 80076; 80307; 80320; 81001; 82306; 82565; 83036; 83735; 83880; 83970; 84100; 84443; 84484; 85025; 85610; 85730; 93005; 93017; 93306; 93970; 97110; 97116; 97163; 97530; 99291; 99292; G0378